=== PATIENT | female | born 1980 | race Caucasian/White ===

== ENCOUNTER 2018-04-23 07:46 | Observation (INO) | payer BC ==
--- NOTE | 2018-04-22 19:02 | PDGENHP ---
History and Physical History and Physical: Assessment and Plan: 1. Intramural and submucous leiomyoma of uterus Lamar and I discussed all conservative and surgical options for her fibroid. At the end of our discussion, she would like to move forward with a hysterectomy. We discussed that she could preserve her ovaries for hormonal regulation. She has never had abnormal cervical exams. I would recommend that she restart the Sprintec and take it in a continuous fashion. Should she have any episodes of breakthrough bleeding that are significant, she has been instructed to call me. I would also recommend taking Aleve BID for the cramping. She will see Dr. Lerma preoperatively for an exam. She does have family here in town that she can stay with before and after surgery. 2. Excessive or frequent menstruation Subjective: Patient ID: Lamar is a 37 y.o. female who presents to [facility] for fibroid consult. HPI Lamar Crisostomo presents for a preoperative visit. She is scheduled for a robotic hysterectomy, bilateral salpingectomy, uterosacral ligament colpopexy, and cystoscopy. The risks, benefits, and alternatives were presented and informed consent was obtained. 40 minutes of this 40 minute appointment was spent counceling, reviewing the procedure in detail, and discussing the preoperative and postoperative instructions. Below is a copy of our prior visit note. Lamar is a 37-year-old para 2 referred here by a previous patient. She is a history of 2 full-term section deliveries. She notes that previously her periods were very light and very regular. However, beginning in May 2017 her periods became very heavy. She initially called her local [employer] PROFESSOR and Kelechi Lang who recommended to take 1000 mg of ibuprofen every 6 hours. This did help initially. She continued with heavier periods despite being on Sprintec. In October this happened again, she notes that she was wearing a tampon and a pad and bled through. She is now having larger amounts of bleeding with clots. Initially the clots were very small, but she does have a picture of one recently that was the diameter of a golf ball. During that episode of bleeding , her JEW[employer] HISTORY PROFESSOR recommended that she take 2 of her Sprintec tablets daily until the bleeding stopped and then restart a new pack. She had significant breast pain and bloating during that time, so she stopped the control and has not restarted. Her has a vasectomy for contraception, and she was taking the control for hormonal regulation. In October, that J[employer] PROFESSOR perform an ultrasound and found a 4.8 cm fibroid which was noted to be submucosal, Noting that more than 50% projects into the endometrial cavity. The endometrial lining was noted to be distorted by the fibroid and unable to be measured. Her right and left ovary appeared normal. She also notes that sex has been somewhat uncomfortable and she has had some uterine cramping during this time. She would like other options on how to manage her fibroid. Lamar lives in [place], [place] and has family in [place]. CURRENT MEDICATIONS: Current Outpatient Medications Medication Sig norgestimate-ethi estradiol (SPRINTEC, 28,) 0.25-35 mg-mcg per tablet Take 1 tablet daily by mouth for three weeks. Discard placebo pills and start a new pack immediately as to take in a continuous fashion. SYNTHROID 150 mcg tablet ASHWAGANDHA ROOT EXTRACT,BULK, MISC aspirin 81 mg EC tablet Take 81 mg by mouth daily. MAGNESIUM PO UNABLE TO FIND Med Name: L-5_MTHF 500mg UNABLE TO FIND Med Name: Inosital UNABLE TO FIND Med Name: L-Methiozine UNABLE TO FIND Med Name: Chloella No current facility-administered medications for this visit. ALLERGIES: Patient has no known allergies. I have reviewed, verified and agree with the past medical, surgical and history as documented by the RN today. Review of Systems Constitutional: Negative. Gastrointestinal: Negative. Genitourinary: Positive for dyspareunia, menstrual problem and pelvic pain. Musculoskeletal: Negative. Objective: Vital Signs: Visit Vitals BP 118/72 Pulse 81 Temp 36.8 C (98.3 F) (Temporal) Resp 16 Ht 1.727 m (5' 8") Wt 81.5 kg (179 lb 9.6 oz) SpO2 99% BMI 27.31 kg/m Physical Exam Constitutional: She is oriented to person, place, and time. She appears well- developed and well-nourished. Abdominal: Soft. Musculoskeletal: Normal range of motion. Neurological: She is alert and oriented to person, place, and time. Skin: Skin is warm and dry. Psychiatric: She has a normal mood and affect. Her behavior is normal. Pelvic: Normal external genitalia. No vaginal bleeding or discharge. No cervical lesion or discharge. Uterus palpates tender on exam, no adnexal masses noted. She has second-degree uterine prolapse and almost second-degree posterior wall prolapse. The uterus is top normal size. Procedures DATA: I have reviewed patient's outside medical records. Summary findings include ultrasound report showing uterine fibroid. TIME/COUNSELING: I personally spent a total of 45 minutes. Of that 40 minutes was counseling/ coordination of patient's care. See my note above for details. Andi Lerma MD
[2018-04-23] MEDS ORDERED: LIDOCAINE 1% 2 ML INJ ID PRN (08:18)
[2018-04-23] MEDS ORDERED: LR 1,000 ML IV ONE (08:18)
--- NOTE | 2018-04-23 08:26 | PDANEPAE ---
ANE History of Present Illness DaVinci assist hysterectomy ANE Past Medical History - Cardiovascular History Hx Hypertension: No Hx Arrhythmias: No Hx Chest Pain: No Hx Coronary Artery / Peripheral Vascular Disease: No Hx CHF / Valvular Disease: No Hx Palpitations: No - Pulmonary History Hx COPD: No Hx Asthma/Reactive Airway Disease: No Hx Recent Upper Respiratory Infection: No Hx Oxygen in Use at Home: No Hx Sleep Apnea: No Sleep Apnea Screening Result - Last Documented: Negative - Neurologic History Hx Cerebrovascular Accident: No Hx Seizures: No Hx Dementia: No - Endocrine History Hx Diabetes: No Hypothyroid: Yes - Renal History Hx Renal Disorders: No - Liver History Hx Hepatic Disorders: No - Neurological & Psychiatric Hx Hx Neurological and Psychiatric Disorders: No - Cancer History Hx Cancer: No - Congenital Disorder History Hx Congenital Disorders: No - GI History Hx Gastrointestinal Disorders: No - Other Health History Other Health History: ? fungal infection in sinuses. hysterectomy - Chronic Pain History Chronic Pain: No - Surgical History Prior Surgeries: oral surgery ANE Review of Systems Review of systems is: negative Review of Systems: - Exercise capacity METS (RN): 4 METS ANE Patient History - Allergies Allergies/Adverse Reactions: No Known Allergies Allergy (Verified 04/23/18 08:34) - Home Medications Home medications: home medication list seen and reviewed Home Medications: Aspirin [Aspirin 81mg (*)] 81 mg PO DAILY 04/02/18 [Last Taken 04/16/18] Herbals/Supplements -Info Only 1 ea PO DAILY 04/02/18 [Last Taken 04/16/18] Levothyroxine [Synthroid 150 mcg (*)] 150 mcg PO DAILY06 04/02/18 [Last Taken 06:00] - NPO status NPO Since - Liquids (Date): 04/23/18 NPO Since - Liquids (Time): 06:00 NPO Since - Solids (Date): 04/22/18 - Anes Hx Anes Hx: no prior problems - Smoking Hx Smoking Status: Never smoked - Family Anes Hx Family Anes Hx: none Family Hx Anesthesia Complications: none ANE Labs/Vital Signs - Vital Signs Vital Signs: reviewed preoperatively; see RN documention for details Height: 172.72 cm Weight: 79.379 kg ANE Physical Exam - Airway Neck exam: FROM Mallampati Score: Class 2 Mouth exam: normal dental/mouth exam - Pulmonary Pulmonary: no respiratory distress - Cardiovascular Cardiovascular: regular rate and rhythym - ASA Status ASA Status: I ANE Anesthesia Plan Anesthesia Plan: general endotracheal anesthesia
[2018-04-23] MEDS ORDERED: BUPIVACAINE/EPI 0.5% 30 ML SDV ONE (09:00)
--- NOTE | 2018-04-23 09:36 | PDHPUP ---
History & Physical Update H&P update statement: This history and physical update is based on an assessment of the patient which was completed after admission or registration (within 24 hours), but prior to the surgery/procedure. H&P update: H&P reviewed & patient examined, no change in patient's condition since H&P completed
[2018-04-23] MEDS ORDERED: MIDAZOLAM 2 MG/2 ML VIAL IVP ONE (10:00)
[2018-04-23] MEDS ORDERED: CEFAZOLIN 2 GM/DEXTROSE/100 ML BAG IV ONE ×2 (10:07→10:10)
[2018-04-23] MEDS ORDERED: fentaNYL 250 MCG/5 ML INJ ONE (10:09)
[2018-04-23] MEDS ORDERED: PHENAZOPYRIDINE HCL 200 MG TAB ONE (10:09)
[2018-04-23] MEDS ORDERED: SUGAMMADEX SODIUM 200 MG/2 ML VIAL IVP ONE (10:09)
[2018-04-23] MEDS ORDERED: ACETAMINOPHEN 500 MG TAB ONE (10:09)
[2018-04-23] MEDS ORDERED: LIDOCAINE 2% 100 MG/5 ML SYR ONE (10:09)
[2018-04-23] MEDS ORDERED: PROPOFOL 200 MG/20 ML VIAL ONE (10:09)
[2018-04-23] MEDS ORDERED: DEXAMETHASONE 4 MG/ML VIAL ONE (10:09)
[2018-04-23] MEDS ORDERED: ROCURONIUM 50 MG/5 ML VIAL ONE (10:09)
[2018-04-23] MEDS ORDERED: ONDANSETRON 4 MG/2 ML VIAL ONE (10:09)
[2018-04-23] MEDS ORDERED: ceFAZolin 2 GM/DEXTROSE 100 ML IV ONE (10:11)
[2018-04-23] MEDS ORDERED: PHENAZOPYRIDINE HCL 200 MG TAB PO ONE (10:11)
[2018-04-23] MEDS ORDERED: ACETAMINOPHEN 500 MG TAB PO ONE (10:11)
[2018-04-23] MEDS ORDERED: MEPERIDINE 25 MG/0.5 ML AMP IVP PRN (10:50)
[2018-04-23] MEDS ORDERED: oxyCODONE IR 5 MG TAB PO PRN (10:50)
[2018-04-23] MEDS ORDERED: PROMETHAZINE HCL 25 MG/ML INJ IVP PRN ×2 (10:50→11:29)
[2018-04-23] MEDS ORDERED: HYDROCODONE/APAP 5/325 TAB PO PRN ×3 (10:50→13:41)
[2018-04-23] MEDS ORDERED: HYDROmorphONE/DILAUDID 2 MG/ML INJ IVP PRN (10:50)
[2018-04-23] MEDS ORDERED: NALOXONE HCL 0.4 MG/ML INJ IVP PRN (10:50)
--- NOTE | 2018-04-23 10:52 | POSTANESTH ---
Post Anesthetic Evaluation Cardiovascular Status: Normal, Stable, Similar to Pre-Op Cond Respiratory Status: Normal, Stable, Similar to Pre-op Cond. Level of Consciousness/Mental Status: Can Participate in Eval, Mildly Sleepy, Arousable Pain Control: Adequate, Prn Tx Ordered Nausea/Vomiting Control: Adequate, Prn Tx Ordered Complications Possibly Related to Anesthesia: None Noted
[2018-04-23] MEDS ORDERED: HYDROmorphONE/DILAUDID 1 MG/ML INJ IVP PRN (11:29)
[2018-04-23] MEDS ORDERED: ONDANSETRON 4 MG/2 ML VIAL IVP PRN (11:30)
[2018-04-23] MEDS ORDERED: ONDANSETRON DISINTEGRATING 4 MG TAB PO PRN (11:30)
[2018-04-23] MEDS: KETOROLAC 30 MG/1 ML SDV IVP SCH ×3 (11:30→23:42)
[2018-04-23] MEDS ORDERED: LR 1,000 ML IV SCH (11:30)
[2018-04-23] MEDS ORDERED: KETOROLAC 30 MG/1 ML SDV ONE (11:35)
[2018-04-23] MEDS ORDERED: fentaNYL 100 MCG/2 ML INJ ONE ×2 (12:09→12:59)
[2018-04-23] MEDS: fentaNYL 100 MCG/2 ML INJ IVP PRN ×5 (12:12→13:23)
[2018-04-23] MEDS ORDERED: NS 500 ML IV ONE ×2 (13:30)
[2018-04-23] MEDS: OXYCODONE/APAP 5/325 TAB PO PRN ×2 (14:44→21:16)
[2018-04-23] MEDS: SIMETHICONE 80 MG TAB CHEW PO SCH ×2 (17:23→21:17)
[2018-04-23] MEDS: DOCUSATE SODIUM 100 MG CAP PO SCH (21:16)
[2018-04-24] MEDS: OXYCODONE/APAP 5/325 TAB PO PRN ×2 (05:19→10:25)
[2018-04-24] MEDS: KETOROLAC 30 MG/1 ML SDV IVP SCH (05:19)
--- NOTE | 2018-04-24 05:20 | GOP ---
[f rep st] OPERATIVE REPORT DATE OF OPERATION: 04/23/2018 SURGEON: Andi Lerma MD [employer] MANAGER: ALVERTO Matamoros. ANESTHESIA: General. PREOPERATIVE DIAGNOSIS: 1. Submucous fibroid. 2. Menorrhagia. 3. Dysmenorrhea. 4. Midcycle pain. 5. Borderline third-degree uterine prolapse. POSTOPERATIVE DIAGNOSIS: 1. Submucous fibroid. 2. Menorrhagia. 3. Dysmenorrhea. 4. Midcycle pain. 5. Endometriosis. 6. Borderline third-degree uterine prolapse. PROCEDURE PERFORMED: 1. Robotic-assisted total laparoscopic hysterectomy, bilateral salpingectomy. 2. Uterosacral ligament colpopexy. 3. Bilateral ureterolysis. 4. Excision of endometriosis in posterior cul-de-sac, bilateral pelvic sidewalls. 5. Bilateral ovariopexy. 6. Cystoscopy. FINDINGS: SPECIMENS: 1. Uterus, bilateral tubes. 1. Pelvic peritoneum with endometriosis. 2. ESTIMATED BLOOD LOSS: Scant. DESCRIPTION OF PROCEDURE: The patient was taken to the operating room where she was identified. Gen eral anesthesia was administered and found to be adequate. She was placed in the lithotomy position and prepared and draped in normal sterile fashion. A VCare uterine manipulator was placed into the e ndometrial cavity and sutured to the cervix. A Malin catheter was then placed. An 8 mm infraumbilical incision was made with a scalpel. The Veress needle with CO2 gas flowing was advanced into the peritoneal cavity. The abdomen was then insufflated with carbon dioxide gas. The 8 mm trocar followed by the laparoscope were then inserted. The upper abdomen was unremarkable. The re was no evidence of endometriosis on either diaphragm, liver, stomach, gallbladder, or upper abdomi nal bowel. Two lateral ports were placed on the right and one on the left under direct visualization . She then was placed in Trendelenburg position and the da Deonte robot docked on the left side. The instruments were then brought into the abdominal cavity under direct visualization. The patient was found to have fairly extensive endometriosis in the posterior cul-de-sac, bilateral pelvic sidewalls . Fortunately, there was only a small amount on her ovaries. The left fallopian tube was along the mesosalpinx. The utero-ovarian ligament, followed by the round ligament, were then cauteri zed and transected. The anterior leaf of the broad ligament was then incised over the left uterine v essels and across the cervix. The bladder was gently dissected off the cervix and upper vagina. The left uterine vasculature was then cauterized and transected. A similar procedure was performed on t he patient's right side. The posterior cul-de-sac peritoneum from the distal rectum up to the cervix and laterally to the uterosacral ligaments was then completely excised. She required bilateral uret erolysis, given the endometriosis overlying both ureters. The peritoneum at the pelvic brims was inc ised. The ureters were gently dissected free and lateralized off the overlying peritoneum and endome triosis from the pelvic brim down to the bladder. Once this was accomplished, the entire pelvic side wall peritoneum was completely excised. A bilateral ovariopexy was then performed by attaching each ovary to the bilateral round ligament near the internal inguinal ring with 3-0 Vicryl suture. A circ umferential colpotomy incision was then made with the hot ericka and all specimens were removed throu gh the vagina. The vaginal cuff was closed with a running suture of 0 V-Loc 180. A bilateral uteros acral ligament colpopexy was performed by attaching the lateral aspects of the vaginal cuff to the ip silateral uterosacral ligaments near the coccygeal-sacrospinous ligament complexes. The pelvis was t hen irrigated with sterile saline, and hemostasis was present. The robot was then undocked. The ski n was closed with 4-0 Monocryl. Cystoscopy was then performed. Both ureters had vigorous jets of urine. There was no evidence of bl adder nor urethral injury seen. No obvious pathology was seen. Anesthesia was reversed. The patien t taken to the PACU awake, in stable condition. COMPLICATIONS: None. DISPOSITION: Patient stable to PACU. /[id number]/MODL
[2018-04-24 05:53] LABS: PLATELET COUNT 261 10^3/uL (150-400)
[2018-04-24] MEDS ORDERED: LEVOTHYROXINE 150 MCG TAB PO SCH (06:00)
[2018-04-24 08:21] VITALS: BP 99/69
[2018-04-24] MEDS: SIMETHICONE 80 MG TAB CHEW PO SCH (10:25)
[2018-04-24] MEDS: DOCUSATE SODIUM 100 MG CAP PO SCH (10:25)
--- NOTE | 2018-04-24 10:41 | GDS ---
[f rep st] DISCHARGE SUMMARY DISCHARGE DIAGNOSES: 1. Submucous fibroid. 2. Menorrhagia. 3. Dysmenorrhea. 4. Endometriosis. PROCEDURES: 1. Robotic-assisted total laparoscopic hysterectomy, bilateral salpingectomy. 2. Bilateral ureterolysis. 3. Excision of endometriosis in posterior cul-de-sac, bilateral pelvic side snow. 4. Bilateral ovariopexy. 5. Uterosacral ligament colpopexy. 6. Cystoscopy. HOSPITAL COURSE/HISTORY: The patient is a 37-year-old woman from [place] with heavy and painful men ses from a submucous fibroid and pelvic endometriosis. She was taken to the operating room on 2018, where she underwent the above-mentioned procedures without complications. The morning after surgery she was ambulating, voiding, and tolerating a general diet. She was discha rged home on postoperative day #1 in good condition. Medications, included ibuprofen and Percocet fo r pain. She is to call me in 2 weeks and follow up in the office in 6 weeks. /[id number]/MODL
== END 2018-04-24 11:14 | disposition home or self-care (01) ==
LOC: F1N 07:46 → FOB 14:26
PROVIDERS: ADMIT Obstetrics & Gynecology; ATTEND Obstetrics & Gynecology
PROC: 0UT94ZZ Resection of Uterus, Percutaneous Endoscopic Approach (ICD-10-PCS; principal; 2018-04-23 09:30)
PROC: 8E0W4CZ Robotic Assisted Procedure of Trunk Region, Percutaneous Endoscopic Approach (ICD-10-PCS; principal; 2018-04-23 09:30)
PROC: 0USG4ZZ Reposition Vagina, Percutaneous Endoscopic Approach (ICD-10-PCS; principal; 2018-04-23 09:30)
PROC: 0UT74ZZ Resection of Bilateral Fallopian Tubes, Percutaneous Endoscopic Approach (ICD-10-PCS; principal; 2018-04-23 09:30)
PROC: 0U5F4ZZ Destruction of Cul-de-sac, Percutaneous Endoscopic Approach (ICD-10-PCS; principal; 2018-04-23 09:30)
PROC: 0UTC4ZZ Resection of Cervix, Percutaneous Endoscopic Approach (ICD-10-PCS; principal; 2018-04-23 09:30)
PROC: 0TJB8ZZ Inspection of Bladder, Via Natural or Artificial Opening Endoscopic (ICD-10-PCS; principal; 2018-04-23 09:30)
DX: D25.0 Submucous leiomyoma of uterus (principal); D25.1 Intramural leiomyoma of uterus; N92.0 Excessive and frequent menstruation with regular cycle; N94.5 Secondary dysmenorrhea; N80.3 Endometriosis of pelvic peritoneum; N81.3 Complete uterovaginal prolapse
CPT/HCPCS: 57425; 58571; 58662; 58679; G0378; J0690; J1100; J1885; J2001; J2250; J2405; J2704; J3010